=== PATIENT | male | born 1955 | race Caucasian/White ===

== ENCOUNTER 2016-04-18 01:14 | Day surgery (SDC) | payer BC ==
[2016-04-18] VITALS (11 sets, daily range): BP systolic 93–115; BP diastolic 52–69
[~2016-04-18] VITALS: Ht 167.6 cm; Wt 84.1 kg
[2016-04-18] MEDS ORDERED: HYDROmorphone HCL 1 MG/ML SYRINGE (J1170) As Ordered ONE (01:54)
[2016-04-18] MEDS ORDERED: TYLE500T78 PO (02:10)
[2016-04-18] MEDS ORDERED: ATEN25TA PO (02:10)
[2016-04-18] MEDS ORDERED: VITA-130 PO (02:10)
[2016-04-18] MEDS ORDERED: DULO30CA PO (02:10)
[2016-04-18] MEDS ORDERED: LISI20TA PO (02:10)
[2016-04-18] MEDS ORDERED: ASPI81TA85 PO (02:10)
[2016-04-18] MEDS ORDERED: CYCL10TA PO (02:10)
[2016-04-18] MEDS ORDERED: GEMF600T PO (02:10)
[2016-04-18] MEDS ORDERED: BUPIVACAINE/EPIN 0.25% 30 ML VIAL As Ordered ONE (02:26)
[2016-04-18] MEDS ORDERED: BUPIVACAINE HCL 0.25% 30 ML VIAL As Ordered ONE (02:27)
[2016-04-18] MEDS ORDERED: PROPOFOL 200 MG/20 ML VIAL As Ordered ONE (02:46)
[2016-04-18] MEDS ORDERED: ROCURONIUM BROMIDE 50 MG/5 ML VIAL As Ordered ONE (02:46)
[2016-04-18] MEDS ORDERED: LIDOCAINE 2% INJ 100 MG/5 ML SDV (FOR ANES.) As Ordered ONE (02:46)
[2016-04-18] MEDS ORDERED: MIDAZOLAM INJ 2 MG/2 ML VIAL (J2250) As Ordered ONE (02:46)
[2016-04-18] MEDS ORDERED: fentaNYL 250 MCG/5 ML INJECTION (J3010) As Ordered ONE (02:46)
--- NOTE | 2016-04-18 02:57 | EDDOCDS ---
Physician Documentation [facility] Name: Vernon Glover Age: 60 yrs Sex: Male : 1955 Arrival Date: 04/18/2016 Time: 01:14 Bed 10 Private MD: Disposition: 04/18/16 01:43 Hospitalization ordered by Low Martinez for Inpatient Admission. Preliminary diagnosis is Acute appendicitis. - Bed requested for Admit. - Status is Inpatient Admission. ml3 - Condition is Stable. - Problem is new. - Symptoms are unchanged. Historical: - Allergies: OTC cold medicine; - Home Meds: 1. aspirin 81 mg Oral tab 1 tab once daily 2. atenolol 25 mg Oral tab 1 tab once daily 3. cyclobenzaprine 10 mg Oral tab 1 tab 3 times per day as needed 4. gemfibrozil 600 mg Oral tab 1 tab daily 5. lisinopril-hydrochlorothiazide 20-12.5 mg oral tab 1 tab once daily 6. Vitamin C 500 mg Oral tab daily - PMHx: Hypertension; Hypercholesterolemia; Chronic Back pain; Degenerative disc disease; lumbar strain; - PSHx: Hernia repair; Carpal Tunnel Repair- Right; back surgery; - Social history: Smoking status: Cigars Patient uses alcohol occasionally. No barriers to communication noted, The patient speaks fluent Slovak. - Family history: Not pertinent. - : The pt / caregiver states he / she is not on anticoagulants. Home medication list is obtained from the patient. - Exposure Risk Screening:: None identified. Vital Signs: 04/18 01:20 BP 145 / 68; Pulse 109; Resp 18; Temp 98.6(TE); Pulse Ox 95% on R/A; Weight 82.55 kg / mdr 181.99 lbs (R); Height 5 ft. 6 in. (167.64 cm) (R); Pain 9/10; 01:59 Pulse 108 MON; Pulse Ox 91% ; 02:27 BP 117 / 63 (auto/); mar 02:27 Pulse 114 MON; Pulse Ox 91% ; mar 02:36 Temp 100.6(O); mdr 01:20 Body Mass Index 29.38 (82.55 kg, 167.64 cm) mdr MDM: 01:44 Dilaudid - HYDROmorphone 0.5 mg IVP once ordered. cs11 01:44 NS 0.9% 1000 ml IV at 250 mL/hr continuous ordered. cs11 01:45 BED REQUEST+ADM ordered. EDMA 02:05 Financial registration complete. [facility] 02:41 Admission Orders was scanned into [employer] and attached to record. ml3 Administered Medications: 02:00 Drug: Dilaudid - HYDROmorphone 0.5 mg [hydromorphone 1 mg/mL injection syringe (0.5 mlc mL)] Route: IVP; Site: left antecubital; 02:00 Drug: NS 0.9% 1000 ml [sodium chloride 0.9 % intravenous solution] Route: IV; Rate: 250 mlc mL/hr; Site: left antecubital; Signatures: Dispatcher [employer] EDMA Barrington Matthews, Loading Machine Tool Setter Unit ml3 Lázaro Brian, DO cs11 Jes Flowers RN RN Dipika Bernal [facility] The chart was reviewed and I authenticate all verbal orders and agree with the evaluation and treatment provided.Corrections: (The following items were deleted from the chart) 02:46 01:26 Home Meds: meloxicam 15 mg oral tab 1 tab once daily; [facility] mar Attachments: 02:41 Admission Orders ml3 MTDD
--- NOTE | 2016-04-18 02:58 | EDDOCDS ---
Nurse's Notes [facility] Name: Vernon Glover Age: 60 yrs Sex: Male : 1955 Arrival Date: 04/18/2016 Time: 01:14 Bed 10 Private MD: Diagnosis: Acute appendicitis Presentation: 04/18 01:18 Presenting complaint: EMS states: transfer from [facility]. pt diagnosed with mlc appendicitis. c/o of right lower quad pain. Adult Sepsis Screening: The patient does not have new or worsening altered mentation. Patient's respiratory rate is less than 22. Systolic blood pressure is greater than 100. Patient has a qSOFA score of 0- Negative Sepsis Screen. Suicide/Homicide risk assessment- the patient denies having any suicidal and/or homicidal ideations and does not present with any other emotional, behavioral or mental health complaints. Status: Patient is not a social services manager or dependent. Transition of care: patient was received from [facility]. 01:18 Acuity: EBENEZER Level 3 mlc 01:18 Method Of Arrival: Ambulance mlc Triage Assessment: 01:26 General: Appears in no apparent distress, comfortable, Behavior is cooperative. Pain: mlc Location: right lower quadrant Pain currently is 8 out of 10 on a pain scale. Pt Declines HIV testing. The patient is triaged at the bedside. See Assessment in Nurses Notes section of ED record. Neurological: Level of Consciousness is awake, alert, Oriented to person, place, time. Respiratory: Airway is patent Respiratory effort is even, unlabored, Respiratory pattern is regular. GI: Abdomen is non- distended Denies nausea. Derm: Skin is pink, warm & dry. Historical: - Allergies: OTC cold medicine; - Home Meds: 1. aspirin 81 mg Oral tab 1 tab once daily 2. atenolol 25 mg Oral tab 1 tab once daily 3. cyclobenzaprine 10 mg Oral tab 1 tab 3 times per day as needed 4. gemfibrozil 600 mg Oral tab 1 tab daily 5. lisinopril-hydrochlorothiazide 20-12.5 mg oral tab 1 tab once daily 6. Vitamin C 500 mg Oral tab daily - PMHx: Hypertension; Hypercholesterolemia; Chronic Back pain; Degenerative disc disease; lumbar strain; - PSHx: Hernia repair; Carpal Tunnel Repair- Right; back surgery; - Social history: Smoking status: Cigars Patient uses alcohol occasionally. No barriers to communication noted, The patient speaks fluent Ugandan. - Family history: Not pertinent. - : The pt / caregiver states he / she is not on anticoagulants. Home medication list is obtained from the patient. - Exposure Risk Screening:: None identified. Screenin:27 Screening information is obtained from the patient. Fall risk: No risks identified. [facility] Assistance ADL's: Requires assistance with housework, assistance is provided by family members. Abuse/DV Screen: The patient / caregiver reports he/she is: not in a situation that causes fear, pain or injury. Nutritional screening: No deficits noted. Advance Directives: Currently, there is a health care proxy, Aidee Glover, . There is an active Power of Trimmer Buffing Wheel, Aidee Glover, . home support is adequate. Assessment: 02:00 General: Appears in no apparent distress, comfortable, Behavior is cooperative. Pain: [facility] Location: right lower quadrant Pain currently is 8 out of 10 on a pain scale. Cardiovascular: Heart tones S1 S2 present. Respiratory: Airway is patent Respiratory effort is even, unlabored, Respiratory pattern is regular, Breath sounds are clear bilaterally. GI: Abdomen is non- distended Bowel sounds present X 4 quads. Abd is tender to palpation in right lower quadrant. Derm: Skin is pink, warm & dry. 02:38 General: no change in general condition, Dr Martinez has evaluated patient.. mar Vital Signs: 01:20 BP 145 / 68; Pulse 109; Resp 18; Temp 98.6(TE); Pulse Ox 95% on R/A; Weight 82.55 kg mdr (R); Height 5 ft. 6 in. (167.64 cm) (R); Pain 9/10; 01:59 Pulse 108 MON; Pulse Ox 91% ; [facility] 02:27 BP 117 / 63 (auto/); mar 02:27 Pulse 114 MON; Pulse Ox 91% ; mar 02:36 Temp 100.6(O); mdr 01:20 Body Mass Index 29.38 (82.55 kg, 167.64 cm) [facility] Vitals: 01:26 Log In Time N/A - ambulance arrival. [facility] ED Course: 01:15 Patient visited by Barrington Matthews, Shrimp Trawler. 3 01:15 Patient moved to Waiting 3 01:16 Jes Flowers RN is Primary Nurse. ml3 01:16 Patient moved to 10 ml3 01:20 Triage Initiated mlc 01:21 Patient visited by Deuce Velez PCA. mdr 01:33 Lázaro Brian DO is Attending Physician. cs11 01:33 Patient visited by Lázaro Brian DO. cs11 01:43 Juan Low is Hospitalizing Provider. cs11 02:01 The patient / caregiver is instructed regarding the plan of care and ED course. mlc 02:01 IV is patent, is intact, is free of redness or swelling. solution is infusing as mlc ordered. 20g left AC, started at [facility]. 02:02 Patient visited by Jes Flowers RN. mlc 02:36 Patient visited by Deuce Velez PCA. mdr 02:41 Admission Orders was scanned into [employer] and attached to record. ml3 02:42 No procedures done that require assistance. kyle Administered Medications: 02:00 Drug: Dilaudid - HYDROmorphone 0.5 mg [hydromorphone 1 mg/mL injection syringe (0.5 mlc mL)] Route: IVP; Site: left antecubital; 02:00 Drug: NS 0.9% 1000 ml [sodium chloride 0.9 % intravenous solution] Route: IV; Rate: 250 mlc mL/hr; Site: left antecubital; Order Results: There are currently no results for this order. Outcome: 01:43 Decision to Hospitalize by Provider. cs11 02:39 Discharge Assessment: patient administered narcotics - no. The following High Risk kyle Discharge criteria are identified: None. Admitted to OR accompanied by nurse, via stretcher, with chart. Condition: unchanged. No special radiology studies were completed. Property with . 02:56 Patient left the ED. ml3 Signatures: Dolores Bach RN RN jan Lopresti, Mary-Elizabeth, Shrimp Trawler Unit ml3 Lázaro Brian DO DO cs11 Jes Flowers RN RN [facility] Deuce Velez PCA BULK TRUCK DRIVER mdr Corrections: (The following items were deleted from the chart) 02:02 02:01 IV is patent, is intact, is free of redness or swelling. solution is infusing as mlc ordered. mlc 02:46 01:26 Home Meds: meloxicam 15 mg oral tab 1 tab once daily; mlc kyle MTDD
[2016-04-18] MEDS ORDERED: UNASYN 1.5 GM VIAL As Ordered ONE (03:04)
[2016-04-18] MEDS ORDERED: SUCCINYLCHOLINE 100 MG/5 ML SYRINGE (J0330) As Ordered ONE (03:21)
[2016-04-18] MEDS ORDERED: ONDANSETRON 4MG/2ML VIAL (J2405) As Ordered ONE (04:05)
[2016-04-18] MEDS ORDERED: KETOROLAC 60 MG/2 ML VIAL (J1885) As Ordered ONE (04:05)
[2016-04-18] MEDS ORDERED: NEOSTIGMINE 1MG/ML 5 ML SYRINGE (J2710) As Ordered ONE (04:05)
[2016-04-18] MEDS ORDERED: GLYCOPYRROLATE INJ 0.2 MG/ML 2 ML VIAL As Ordered ONE (04:05)
[2016-04-18] MEDS: PIPERACILLIN/TAZOBACTAM SOD 3.375 GM in D5W MINI-BAG PLUS 50 ML IV SCH ×4 (05:10→22:53)
[2016-04-18] MEDS ORDERED: ZOSYN 3.375 GM VIAL (J2543) As Ordered ONE (05:10)
[2016-04-18] MEDS ORDERED: LR 1,000 ML IV SCH (05:30)
[2016-04-18] MEDS ORDERED: ACETAMINOPHEN TAB 650MG DOSE (2X325MG) PO PRN (05:30)
[2016-04-18] MEDS ORDERED: ONDANSETRON 4MG/2ML VIAL (J2405) IV PRN ×2 (05:30→05:45)
[2016-04-18] MEDS: LR 1,000 ML IV SCH ×2 (05:30→15:30)
[2016-04-18] MEDS ORDERED: fentaNYL 100 MCG/2 ML INJECTION (J3010) IV PRN (05:30)
[2016-04-18] MEDS ORDERED: ONDANSETRON 4 MG TAB (S0181) PO PRN (05:45)
[2016-04-18] MEDS: MORPHINE 2 MG/ML 1ML SYRINGE IV PRN ×2 (09:02→22:53)
[2016-04-18] MEDS: ATENOLOL 25 MG TAB PO SCH (10:51)
[2016-04-18] MEDS: NORCO, ANEXSIA 5/325MG TABLET (HYDROcodone/ACETAMINOPHEN) PO PRN ×3 (12:19→21:34)
[2016-04-18 16:06] LABS: BASO # 0.1 K/mm3 (0.0-0.2); BASO % 0.5 % (0.0-1.0); EOS % 0.3 % (0.0-3.0); LARGE UNSTAINED CELL # 0.2 K/mm3 (0.0-0.4); LARGE UNSTAINED CELL % 1.1 % (0.0-4.0); LYMPH # 1.5 K/mm3 (1.5-4.5); LYMPH % 9.8 % (24.0-44.0); MEAN CORPUSCULAR HEMOGLOBIN 31.6 pg (27.0-33.0); MEAN CORPUSCULAR HGB CONC 34.3 g/dl (32.0-36.5); MEAN CORPUSCULAR VOLUME 92.2 fl (80.0-96.0); MONO # 0.8 K/mm3 (0.0-0.8); MONO % 5.5 % (0.0-5.0); NEUTROPHILS # 11.4 K/mm3 (1.8-7.7); NEUTROPHILS % 82.8 % (36.0-66.0); PLATELET COUNT, AUTOMATED 191 k/mm3 (150-450); RED CELL DISTRIBUTION WIDTH 13.9 % (11.5-14.5); WHITE BLOOD COUNT 13.8 K/mm3 (4.0-10.0)
[2016-04-19] VITALS: BP 103/61
[2016-04-19] MEDS: NORCO, ANEXSIA 5/325MG TABLET (HYDROcodone/ACETAMINOPHEN) PO PRN ×6 (01:30→11:07)
[2016-04-19 04:00] VITALS: BP 98/61
[2016-04-19] MEDS: MORPHINE 2 MG/ML 1ML SYRINGE IV PRN (04:06)
[2016-04-19] MEDS: PIPERACILLIN/TAZOBACTAM SOD 3.375 GM in D5W MINI-BAG PLUS 50 ML IV SCH ×2 (05:11→11:00)
[2016-04-19 07:34] LABS: BASO % 0.2 % (0.0-1.0); EOS # 0.1 K/mm3 (0.0-0.50); LARGE UNSTAINED CELL # 0.1 K/mm3 (0.0-0.4); LARGE UNSTAINED CELL % 0.9 % (0.0-4.0); LYMPH # 1.1 K/mm3 (1.5-4.5); LYMPH % 9.7 % (24.0-44.0); MEAN CORPUSCULAR HEMOGLOBIN 31.8 pg (27.0-33.0); MEAN CORPUSCULAR HGB CONC 34.9 g/dl (32.0-36.5); MONO # 0.5 K/mm3 (0.0-0.8); MONO % 4.4 % (0.0-5.0); NEUTROPHILS # 9.7 K/mm3 (1.8-7.7); NEUTROPHILS % 83.8 % (36.0-66.0); PLATELET COUNT, AUTOMATED 223 k/mm3 (150-450); RED CELL DISTRIBUTION WIDTH 12.5 % (11.5-14.5); WHITE BLOOD COUNT 11.6 K/mm3 (4.0-10.0)
[2016-04-19 08:00] VITALS: BP 126/70
--- NOTE | 2016-04-19 08:21 | RO ---
DATE OF PROCEDURE: 04/18/2016 PREOPERATIVE DIAGNOSIS: Appendicitis. POSTOPERATIVE DIAGNOSIS: Perforated appendicitis. PROCEDURE PERFORMED: Laparoscopic appendectomy. SURGEON: Dr. Low Martinez RETAIL WAREHOUSE SUPERVISOR: ANESTHESIA: General. INDICATIONS FOR PROCEDURE: The patient is a 60-year-old man who presented to [facility] with a roughly 24-hour history of abdominal pain becoming localized to the right lower quadrant. He was found to have a white blood cell count of 20,000 with 84% neutrophils and a CT scan was interpreted as being consistent with appendicitis. The patient was transferred to [facility] for treatment and he is now for surgery. OPERATIVE PROCEDURE: The patient was placed under general endotracheal anesthesia. The patient's abdomen was prepped and draped in a sterile fashion. 0.25% Marcaine was infiltrated at each of the trocar sites. A short supraumbilical midline incision was made and deepened through the subcutaneous tissues and fascia. The peritoneum was opened bluntly. A Ott cannula was inserted and the abdomen was insufflated with carbon dioxide gas. Initial examination showed some inflammatory changes low in the right lower quadrant. There was some exudate noted over the fibrofatty tissue adjacent to the terminal ileum. There was a small amount of turbid yellowish looking fluid low in the right lower quadrant. The patient was tilted to a Trendelenburg position and rolled somewhat to the left. A 5 mm trocar was placed low in the midline and a second 5 mm trocar was placed in the left lower quadrant. Graspers were inserted. There were some adhesions of the lateral aspect of the cecum to the lateral abdominal wall. The fibrofatty tissue seen initially was found to be a fatty tag along the antimesenteric border of the terminal ileum. As this was folded medially, the inflamed appendix was identified just lateral to this. It was difficult to expose this area as the terminal ileum was also adherent along the lateral border of the pelvis and the cecum and terminal ileum covered much of the appendix. Some of the attachments laterally, particularly of the cecum, were divided using the hook cautery. The fatty tag along the terminal ileum was dissected off using the hook cautery. The appendix was identified and was clearly quite inflamed. There appeared to be a small perforation or incipient perforation in the midportion of the appendix. As the appendix was mobilized, this area opened and there was drainage of purulent and feculent fluid into the area around the appendix. This was all rapidly irrigated and suctioned. The appendix was grasped and elevated. Some adhesions attaching this to the retroperitoneum were divided with the hook cautery. The mesoappendix was largely divided using the hook cautery. The base of the appendix was exposed and the base was then stapled with the linear cutter stapler with a blue load. The appendix was placed in an Endopouch. The right lower quadrant was irrigated. Inspection identified a small oozing point just inferior to the cecum and this was controlled with the cautery. Inspection revealed no further bleeding. The patient was tilted to a reverse Trendelenburg position and the right paracolic gutter and the right lower quadrant were all irrigated to remove any contamination. The irrigation was then suctioned from the abdomen as thoroughly as possible. A total of 3 liters of irrigation was used for the procedure. Once the irrigation was complete, the right lower quadrant was inspected a final time and there was no sign of bleeding. The patient was placed in a flat position and the abdomen was deflated and the trocars were all removed. The appendix was recovered through the Ott site. The peritoneum at the Ott site was closed with two simple sutures of #2-0 Vicryl. The fascia was closed with interrupted simple sutures of #2-0 Vicryl. The skin incisions were all closed with buried #5-0 Vicryl and Steri-Strips. Light dressings were applied. The patient tolerated the procedure well without apparent complication. He was awakened in the operating room, extubated and moved to the recovery room in stable condition. DEN
[2016-04-19 08:51] VITALS: BP 126/70
[2016-04-19] MEDS: ATENOLOL 25 MG TAB PO SCH (08:51)
[2016-04-19] MEDS ORDERED: BACT800T5 PO (11:07)
[2016-04-19] MEDS ORDERED: METR500T10 PO (11:07)
[2016-04-19] MEDS ORDERED: NORCOTAB PO (11:07)
--- NOTE | 2016-04-20 03:58 | EDDOCDS ---
Nurse's Notes [facility] Name: Vernon Glover Age: 60 yrs Sex: Male : 1955 Arrival Date: 04/18/2016 Time: 01:14 Bed 10 Private MD: Diagnosis: Acute appendicitis Presentation: 04/18 01:18 Presenting complaint: EMS states: transfer from [facility]. pt diagnosed with mlc appendicitis. c/o of right lower quad pain. Adult Sepsis Screening: The patient does not have new or worsening altered mentation. Patient's respiratory rate is less than 22. Systolic blood pressure is greater than 100. Patient has a qSOFA score of 0- Negative Sepsis Screen. Suicide/Homicide risk assessment- the patient denies having any suicidal and/or homicidal ideations and does not present with any other emotional, behavioral or mental health complaints. Status: Patient is not a ancillary services manager or dependent. Transition of care: patient was received from [facility]. 01:18 Acuity: EBENEZER Level 3 mlc 01:18 Method Of Arrival: Ambulance mlc Triage Assessment: 01:26 General: Appears in no apparent distress, comfortable, Behavior is cooperative. Pain: mlc Location: right lower quadrant Pain currently is 8 out of 10 on a pain scale. Pt Declines HIV testing. The patient is triaged at the bedside. See Assessment in Nurses Notes section of ED record. Neurological: Level of Consciousness is awake, alert, Oriented to person, place, time. Respiratory: Airway is patent Respiratory effort is even, unlabored, Respiratory pattern is regular. GI: Abdomen is non- distended Denies nausea. Derm: Skin is pink, warm & dry. Historical: - Allergies: OTC cold medicine; - Home Meds: 1. aspirin 81 mg Oral tab 1 tab once daily 2. atenolol 25 mg Oral tab 1 tab once daily 3. cyclobenzaprine 10 mg Oral tab 1 tab 3 times per day as needed 4. gemfibrozil 600 mg Oral tab 1 tab daily 5. lisinopril-hydrochlorothiazide 20-12.5 mg oral tab 1 tab once daily 6. Vitamin C 500 mg Oral tab daily - PMHx: Hypertension; Hypercholesterolemia; Chronic Back pain; Degenerative disc disease; lumbar strain; - PSHx: Hernia repair; Carpal Tunnel Repair- Right; back surgery; - Social history: Smoking status: Cigars Patient uses alcohol occasionally. No barriers to communication noted, The patient speaks fluent Filipino. - Family history: Not pertinent. - : The pt / caregiver states he / she is not on anticoagulants. Home medication list is obtained from the patient. - Exposure Risk Screening:: None identified. Screenin:27 Screening information is obtained from the patient. Fall risk: No risks identified. [facility] Assistance ADL's: Requires assistance with housework, assistance is provided by family members. Abuse/DV Screen: The patient / caregiver reports he/she is: not in a situation that causes fear, pain or injury. Nutritional screening: No deficits noted. Advance Directives: Currently, there is a health care proxy, Aidee Glover, . There is an active Power of Window Cutter, Aidee Glover, . home support is adequate. Assessment: 02:00 General: Appears in no apparent distress, comfortable, Behavior is cooperative. Pain: [facility] Location: right lower quadrant Pain currently is 8 out of 10 on a pain scale. Cardiovascular: Heart tones S1 S2 present. Respiratory: Airway is patent Respiratory effort is even, unlabored, Respiratory pattern is regular, Breath sounds are clear bilaterally. GI: Abdomen is non- distended Bowel sounds present X 4 quads. Abd is tender to palpation in right lower quadrant. Derm: Skin is pink, warm & dry. 02:38 General: no change in general condition, Dr Martinez has evaluated patient.. mar Vital Signs: 01:20 BP 145 / 68; Pulse 109; Resp 18; Temp 98.6(TE); Pulse Ox 95% on R/A; Weight 82.55 kg mdr (R); Height 5 ft. 6 in. (167.64 cm) (R); Pain 9/10; 01:59 Pulse 108 MON; Pulse Ox 91% ; [facility] 02:27 BP 117 / 63 (auto/); mar 02:27 Pulse 114 MON; Pulse Ox 91% ; mar 02:36 Temp 100.6(O); mdr 01:20 Body Mass Index 29.38 (82.55 kg, 167.64 cm) [facility] Vitals: 01:26 Log In Time N/A - ambulance arrival. [facility] ED Course: 01:15 Patient visited by Barrington Matthews, Knot Bumper. 3 01:15 Patient moved to Waiting 3 01:16 Jes Flowers RN is Primary Nurse. ml3 01:16 Patient moved to 10 ml3 01:20 Triage Initiated mlc 01:21 Patient visited by Deuce Velez, SKY. mdr 01:33 Lázaro Brian DO is Attending Physician. cs11 01:33 Patient visited by Lázaro Brian DO. cs11 01:43 Low Martinez is Hospitalizing Provider. cs11 02:01 The patient / caregiver is instructed regarding the plan of care and ED course. mlc 02:01 IV is patent, is intact, is free of redness or swelling. solution is infusing as mlc ordered. 20g left AC, started at [facility]. 02:02 Patient visited by Jes Flowers RN. mlc 02:36 Patient visited by Deuce Velez PCA. mdr 02:41 Admission Orders was scanned into [employer] and attached to record. ml3 02:42 No procedures done that require assistance. kyle 03:33 Patient name changed from Vernon\S\\S\Briere\S\ to Vernon\S\Suleiman\S\Briere. EDMS 03:33 [facility] Payment Agreement was scanned into [employer] and attached to record. [facility] 14:10 T-Sheet-- Draft Copy was scanned into [employer] and attached to record. gb Administered Medications: 02:00 Drug: Dilaudid - HYDROmorphone 0.5 mg [hydromorphone 1 mg/mL injection syringe (0.5 mlc mL)] Route: IVP; Site: left antecubital; 02:00 Drug: NS 0.9% 1000 ml [sodium chloride 0.9 % intravenous solution] Route: IV; Rate: 250 mlc mL/hr; Site: left antecubital; Order Results: There are currently no results for this order. Outcome: 01:43 Decision to Hospitalize by Provider. cs11 02:39 Discharge Assessment: patient administered narcotics - no. The following High Risk kyle Discharge criteria are identified: None. Admitted to OR accompanied by nurse, via stretcher, with chart. Condition: unchanged. No special radiology studies were completed. Property with . 02:56 Patient left the ED. ml3 Signatures: Dispatcher [employer] EDMS Dolores Bach RN RN jan Barnhardt, Gloria, Reg Reg Barrington Santana, Knot Bumper Unit ml3 Lázaro Brian DO DO cs11 Jes Flowers,RN RN Dipika Bernal Mitchell, PCA MUTUAL FUND SALES AGENT mdr Corrections: (The following items were deleted from the chart) 02:02 02:01 IV is patent, is intact, is free of redness or swelling. solution is infusing as mlc ordered. [facility] 02:46 01:26 Home Meds: meloxicam 15 mg oral tab 1 tab once daily; [facility] kyle Chart Complete MTDD
--- NOTE | 2016-04-20 03:58 | EDDOCDS ---
Physician Documentation [facility] Name: Vernon Glover Age: 60 yrs Sex: Male : 1955 Arrival Date: 04/18/2016 Time: 01:14 Bed 10 Private MD: Disposition: 04/18/16 01:43 Hospitalization ordered by Low Martinez for Inpatient Admission. Preliminary diagnosis is Acute appendicitis. - Bed requested for Admit. - Status is Inpatient Admission. ml3 - Condition is Stable. - Problem is new. - Symptoms are unchanged. Historical: - Allergies: OTC cold medicine; - Home Meds: 1. aspirin 81 mg Oral tab 1 tab once daily 2. atenolol 25 mg Oral tab 1 tab once daily 3. cyclobenzaprine 10 mg Oral tab 1 tab 3 times per day as needed 4. gemfibrozil 600 mg Oral tab 1 tab daily 5. lisinopril-hydrochlorothiazide 20-12.5 mg oral tab 1 tab once daily 6. Vitamin C 500 mg Oral tab daily - PMHx: Hypertension; Hypercholesterolemia; Chronic Back pain; Degenerative disc disease; lumbar strain; - PSHx: Hernia repair; Carpal Tunnel Repair- Right; back surgery; - Social history: Smoking status: Cigars Patient uses alcohol occasionally. No barriers to communication noted, The patient speaks fluent Occitan. - Family history: Not pertinent. - : The pt / caregiver states he / she is not on anticoagulants. Home medication list is obtained from the patient. - Exposure Risk Screening:: None identified. Vital Signs: 04/18 01:20 BP 145 / 68; Pulse 109; Resp 18; Temp 98.6(TE); Pulse Ox 95% on R/A; Weight 82.55 kg / mdr 181.99 lbs (R); Height 5 ft. 6 in. (167.64 cm) (R); Pain 9/10; 01:59 Pulse 108 MON; Pulse Ox 91% ; 02:27 BP 117 / 63 (auto/); mar 02:27 Pulse 114 MON; Pulse Ox 91% ; mar 02:36 Temp 100.6(O); mdr 01:20 Body Mass Index 29.38 (82.55 kg, 167.64 cm) mdr MDM: 01:44 Dilaudid - HYDROmorphone 0.5 mg IVP once ordered. cs11 01:44 NS 0.9% 1000 ml IV at 250 mL/hr continuous ordered. cs11 01:45 BED REQUEST+ADM ordered. EDMS 02:05 Financial registration complete. [facility] 02:41 Admission Orders was scanned into [employer] and attached to record. [facility] 03:33 COUNT INCLUDES THE [facility] Payment Agreement was scanned into [employer] and attached to record. [facility] 14:10 T-Sheet-- Draft Copy was scanned into [employer] and attached to record. gb Administered Medications: 02:00 Drug: Dilaudid - HYDROmorphone 0.5 mg [hydromorphone 1 mg/mL injection syringe (0.5 mlc mL)] Route: IVP; Site: left antecubital; 02:00 Drug: NS 0.9% 1000 ml [sodium chloride 0.9 % intravenous solution] Route: IV; Rate: 250 mlc mL/hr; Site: left antecubital; Signatures: Dispatcher [employer] EDMS Denisa Prieto, Chidi Reg Barrington Santana, Cardiac Sonographer Unit ml3 Lázaro Brian, DO cs Jes Flowers,RN RN Dipika Bernal [facility] The chart was reviewed and I authenticate all verbal orders and agree with the evaluation and treatment provided.Corrections: (The following items were deleted from the chart) 02:46 01:26 Home Meds: meloxicam 15 mg oral tab 1 tab once daily; [facility] [place] Attachments: 02:41 Admission Orders [facility] 03:33 COUNT INCLUDES THE [facility] Payment Agreement [facility] 14:10 T-Sheet-- Draft Copy gb Chart Complete MTDD
--- NOTE | 2016-04-20 03:58 | EDDOCDS ---
Physician Documentation [facility] Name: Vernon Glover Age: 60 yrs Sex: Male : 1955 Arrival Date: 04/18/2016 Time: 01:14 Bed 10 Private MD: Disposition: 04/18/16 01:43 Hospitalization ordered by Low Martinez for Inpatient Admission. Preliminary diagnosis is Acute appendicitis. - Bed requested for Admit. - Status is Inpatient Admission. ml3 - Condition is Stable. - Problem is new. - Symptoms are unchanged. Historical: - Allergies: OTC cold medicine; - Home Meds: 1. aspirin 81 mg Oral tab 1 tab once daily 2. atenolol 25 mg Oral tab 1 tab once daily 3. cyclobenzaprine 10 mg Oral tab 1 tab 3 times per day as needed 4. gemfibrozil 600 mg Oral tab 1 tab daily 5. lisinopril-hydrochlorothiazide 20-12.5 mg oral tab 1 tab once daily 6. Vitamin C 500 mg Oral tab daily - PMHx: Hypertension; Hypercholesterolemia; Chronic Back pain; Degenerative disc disease; lumbar strain; - PSHx: Hernia repair; Carpal Tunnel Repair- Right; back surgery; - Social history: Smoking status: Cigars Patient uses alcohol occasionally. No barriers to communication noted, The patient speaks fluent Kiswahili. - Family history: Not pertinent. - : The pt / caregiver states he / she is not on anticoagulants. Home medication list is obtained from the patient. - Exposure Risk Screening:: None identified. Vital Signs: 04/18 01:20 BP 145 / 68; Pulse 109; Resp 18; Temp 98.6(TE); Pulse Ox 95% on R/A; Weight 82.55 kg / mdr 181.99 lbs (R); Height 5 ft. 6 in. (167.64 cm) (R); Pain 9/10; 01:59 Pulse 108 MON; Pulse Ox 91% ; 02:27 BP 117 / 63 (auto/); mar 02:27 Pulse 114 MON; Pulse Ox 91% ; mar 02:36 Temp 100.6(O); mdr 01:20 Body Mass Index 29.38 (82.55 kg, 167.64 cm) mdr MDM: 01:44 Dilaudid - HYDROmorphone 0.5 mg IVP once ordered. cs11 01:44 NS 0.9% 1000 ml IV at 250 mL/hr continuous ordered. cs11 01:45 BED REQUEST+ADM ordered. EDMS 02:05 Financial registration complete. [facility] 02:41 Admission Orders was scanned into [employer] and attached to record. [facility] 03:33 [facility] Payment Agreement was scanned into [employer] and attached to record. [facility] 14:10 T-Sheet-- Draft Copy was scanned into [employer] and attached to record. gb Administered Medications: 02:00 Drug: Dilaudid - HYDROmorphone 0.5 mg [hydromorphone 1 mg/mL injection syringe (0.5 mlc mL)] Route: IVP; Site: left antecubital; 02:00 Drug: NS 0.9% 1000 ml [sodium chloride 0.9 % intravenous solution] Route: IV; Rate: 250 mlc mL/hr; Site: left antecubital; Signatures: Dispatcher [employer] EDMS Denisa Prieto, Chidi Reg Barrington Santana, Finance Business Partner Unit ml3 Lázaro Brian, DO cs Jes Flowers,RN RN Dipika Bernal [facility] The chart was reviewed and I authenticate all verbal orders and agree with the evaluation and treatment provided.Corrections: (The following items were deleted from the chart) 02:46 01:26 Home Meds: meloxicam 15 mg oral tab 1 tab once daily; [facility] [place] [facility] Attachments: 02:41 Admission Orders [facility] 03:33 [facility] Payment Agreement [facility] 14:10 T-Sheet-- Draft Copy gb Chart Complete MTDD
== END 2016-04-19 13:20 | disposition home or self-care (01) ==
LOC: M ED 01:14 → M OROP 02:03 → M PED 05:41 → M OROP 04-19 13:20
PROVIDERS: ATTEND Surgery
DX: K35.2 Acute appendicitis with generalized peritonitis (principal); I10 Essential (primary) hypertension; E11.9 Type 2 diabetes mellitus without complications; E78.5 Hyperlipidemia, unspecified; M54.9 Dorsalgia, unspecified; Z79.899 Other long term (current) drug therapy; Z79.82 Long term (current) use of aspirin; Z88.8 Allergy status to other drugs, medicaments and biological substances; F17.210 Nicotine dependence, cigarettes, uncomplicated
CPT/HCPCS: 36415; 44970; 85025; 88304; 96374; 96375; 96376; 99285; J0330; J1170; J1885; J2250; J2405; J2543; J2710; J3010

== ENCOUNTER → 2016-07-19 | Outpatient (REF) | payer BC ==
[~2016-07-19] MED LIST: ASPI81TA85 PO; ATEN25TA PO; BACT800T5 PO; CYCL10TA PO; DULO30CA PO; GEMF600T PO; LISI20TA PO; METR500T10 PO; NORCOTAB PO; TYLE500T78 PO; VITA-130 PO
[2016-07-19 13:05] LABS: ALBUMIN 4.6 GM/DL (3.2-5.2); ALBUMIN/GLOBULIN RATIO 1.39 (1.00-1.93); ALKALINE PHOSPHATASE 79 U/L (45-117); ALT/SGPT 30 U/L (12-78); ANION GAP 8 MEQ/L (8-16); AST/SGOT 18 U/L (15-37); BILIRUBIN,TOTAL 0.4 MG/DL (0.2-1.0); BLOOD UREA NITROGEN 10 MG/DL (7-18); CALCIUM LEVEL 9.7 MG/DL (8.5-10.1); CARBON DIOXIDE LEVEL 31 MEQ/L (21-32); CHLORIDE LEVEL 98 MEQ/L (98-107); CREATININE FOR GFR 0.59 MG/DL (0.70-1.30); GLOMERULAR FILTRATION RATE > 60.0 (>56); GLUCOSE, FASTING 117 MG/DL (70-105); POTASSIUM SERUM 4.7 MEQ/L (3.5-5.1); SODIUM LEVEL 137 MEQ/L (136-145); TOTAL PROTEIN 7.9 GM/DL (6.4-8.2)
== END ==
LOC: M SFHCCLAY 08:30
PROVIDERS: ATTEND Family Medicine
DX: I10 Essential (primary) hypertension (principal); R73.01 Impaired fasting glucose

== ENCOUNTER → 2016-12-02 | Outpatient (REF) | payer BC ==
[~2016-12-02] MED LIST changes: +METR1TAB66 PO; -METR500T10 PO; -VITA-130 PO; +VITA500T PO
[2016-12-02 12:29] LABS: ALBUMIN 4.1 GM/DL (3.2-5.2); ALBUMIN/GLOBULIN RATIO 1.37 (1.00-1.93); ALKALINE PHOSPHATASE 72 U/L (45-117); ALT/SGPT 28 U/L (12-78); ANION GAP 9 MEQ/L (8-16); AST/SGOT 13 U/L (15-37); BILIRUBIN,TOTAL 0.4 MG/DL (0.2-1.0); BLOOD UREA NITROGEN 14 MG/DL (7-18); CALCIUM LEVEL 9.2 MG/DL (8.8-10.2); CARBON DIOXIDE LEVEL 28 MEQ/L (21-32); CHLORIDE LEVEL 100 MEQ/L (98-107); CHOLESTEROL LEVEL 177 MG/DL (<200); CREATININE FOR GFR 0.62 MG/DL (0.70-1.30); GLOMERULAR FILTRATION RATE > 60.0 (>49); GLUCOSE, FASTING 186 MG/DL (80-110); POTASSIUM SERUM 4.3 MEQ/L (3.5-5.1); SODIUM LEVEL 137 MEQ/L (136-145); TOTAL PROTEIN 7.1 GM/DL (6.4-8.2); TRIGLYCERIDES LEVEL 220 MG/DL (<150)
== END ==
LOC: M SFHCCLAY 07:43
PROVIDERS: ATTEND Family Medicine
DX: E78.5 Hyperlipidemia, unspecified (principal); R73.01 Impaired fasting glucose

== ENCOUNTER → 2017-02-28 | Outpatient (REF) | payer BC ==
[2017-02-28 18:22] LABS: ANION GAP 6 MEQ/L (8-16); BLOOD UREA NITROGEN 14 MG/DL (7-18); CALCIUM LEVEL 9.7 MG/DL (8.8-10.2); CARBON DIOXIDE LEVEL 30 MEQ/L (21-32); CHLORIDE LEVEL 99 MEQ/L (98-107); CREATININE FOR GFR 0.64 MG/DL (0.70-1.30); GLOMERULAR FILTRATION RATE > 60.0 (>49); GLUCOSE, FASTING 117 MG/DL (80-110); POTASSIUM SERUM 4.8 MEQ/L (3.5-5.1); SODIUM LEVEL 135 MEQ/L (136-145)
== END ==
LOC: M SFHCCLAY 07:55
PROVIDERS: ATTEND Family Medicine
DX: R73.01 Impaired fasting glucose (principal)

== ENCOUNTER → 2017-09-28 | Outpatient (REF) | payer OTHER ==
[2017-09-28 11:59] LABS: ALBUMIN 4.2 GM/DL (3.2-5.2); ALBUMIN/GLOBULIN RATIO 1.35 (1.00-1.93); ALKALINE PHOSPHATASE 69 U/L (45-117); ALT/SGPT 35 U/L (12-78); ANION GAP 9 MEQ/L (8-16); AST/SGOT 30 U/L (7-37); BILIRUBIN,TOTAL 0.5 MG/DL (0.2-1.0); BLOOD UREA NITROGEN 11 MG/DL (7-18); CARBON DIOXIDE LEVEL 28 MEQ/L (21-32); CHLORIDE LEVEL 100 MEQ/L (98-107); CREATININE FOR GFR 0.66 MG/DL (0.70-1.30); GLOMERULAR FILTRATION RATE > 60.0 (>49); GLUCOSE, FASTING 135 MG/DL (70-100); POTASSIUM SERUM 4.4 MEQ/L (3.5-5.1); SODIUM LEVEL 137 MEQ/L (136-145); TOTAL PROTEIN 7.3 GM/DL (6.4-8.2)
[2017-09-28 13:03] LABS: ESTIMATED AVERAGE GLUCOSE 137 MG/DL (60-110); HEMOGLOBIN A1c 6.4 %
== END ==
LOC: M SFHCCLAY 09:38
DX: R73.01 Impaired fasting glucose (principal)
CPT/HCPCS: 80053

== ENCOUNTER → 2018-04-27 | Outpatient (REF) | payer BC ==
[~2018-04-27] MED LIST changes: -GEMF600T PO; +GEMF600T5 PO; +METR-201 PO; -METR1TAB66 PO
[2018-04-27 12:34] LABS: ALBUMIN 4.6 GM/DL (3.2-5.2); ALT/SGPT 24 U/L (12-78); BILIRUBIN,TOTAL 0.6 MG/DL (0.2-1.0); BLOOD UREA NITROGEN 15 MG/DL (7-18); CALCIUM LEVEL 9.1 MG/DL (8.8-10.2); CARBON DIOXIDE LEVEL 29 MEQ/L (21-32); CHLORIDE LEVEL 97 MEQ/L (98-107); CHOLESTEROL LEVEL 183 MG/DL (<200); CHOLESTEROL RISK RATIO 5.903 (<5); CREATININE FOR GFR 0.75 MG/DL (0.70-1.30); GLOMERULAR FILTRATION RATE > 60.0 (>49); GLUCOSE, FASTING 188 MG/DL (70-100); HDL CHOLESTEROL 31 MG/DL (>40); LDL CHOLESTEROL 75 MG/DL (<100); NON-HDL-C 152 MG/DL; POTASSIUM SERUM 4.4 MEQ/L (3.5-5.1); SODIUM LEVEL 132 MEQ/L (136-145); TOTAL PROTEIN 7.6 GM/DL (6.4-8.2); TRIGLYCERIDES LEVEL 386 MG/DL (<150)
[2018-04-27 12:58] LABS: HEMOGLOBIN A1c 7.4 %
== END ==
LOC: M SFHCCLAY 09:07
PROVIDERS: ATTEND Family Medicine
DX: I10 Essential (primary) hypertension (principal); E78.5 Hyperlipidemia, unspecified; R73.01 Impaired fasting glucose

== ENCOUNTER → 2018-08-30 | Outpatient (REF) | payer BC ==
[~2018-08-30] MED LIST changes: -DULO30CA PO; +DULO30CA9 PO; +HYDR-3715 PO; -METR-201 PO; +METR-265 PO; -NORCOTAB PO
[2018-08-30 12:35] LABS: ALBUMIN 4.3 GM/DL (3.2-5.2); ALT/SGPT 25 U/L (12-78); BILIRUBIN,TOTAL 0.5 MG/DL (0.2-1.0); BLOOD UREA NITROGEN 14 MG/DL (7-18); CALCIUM LEVEL 9.4 MG/DL (8.8-10.2); CARBON DIOXIDE LEVEL 28 MEQ/L (21-32); CHLORIDE LEVEL 99 MEQ/L (98-107); CHOLESTEROL LEVEL 172 MG/DL (<200); CHOLESTEROL RISK RATIO 4.095 (<5); CREATININE FOR GFR 0.75 MG/DL (0.70-1.30); GLOMERULAR FILTRATION RATE > 60.0 (>49); GLUCOSE, FASTING 130 MG/DL (70-100); HDL CHOLESTEROL 42 MG/DL (>40); LDL CHOLESTEROL 97 MG/DL (<100); NON-HDL-C 130 MG/DL; POTASSIUM SERUM 4.6 MEQ/L (3.5-5.1); SODIUM LEVEL 135 MEQ/L (136-145); TOTAL PROTEIN 7.6 GM/DL (6.4-8.2); TRIGLYCERIDES LEVEL 167 MG/DL (<150)
[2018-08-30 12:39] LABS: HEMOGLOBIN A1c 6.7 %
== END ==
LOC: M SFHCCLAY 07:50
PROVIDERS: ATTEND Family Medicine
DX: E11.9 Type 2 diabetes mellitus without complications (principal)

== ENCOUNTER → 2019-03-28 | Outpatient (REF) | payer MEDICARE, BC ==
[~2019-03-28] MED LIST changes: -LISI20TA PO; +LISI20TA19 PO
[2019-03-29 11:41] LABS: ALBUMIN 4.4 GM/DL (3.2-5.2); ALT/SGPT 18 U/L (12-78); BILIRUBIN,TOTAL 0.5 MG/DL (0.2-1.0); BLOOD UREA NITROGEN 14 MG/DL (7-18); CALCIUM LEVEL 9.1 MG/DL (8.8-10.2); CARBON DIOXIDE LEVEL 29 MEQ/L (21-32); CHLORIDE LEVEL 100 MEQ/L (98-107); CREATININE FOR GFR 0.71 MG/DL (0.70-1.30); GLOMERULAR FILTRATION RATE > 60.0 (>49); GLUCOSE, FASTING 106 MG/DL (70-100); POTASSIUM SERUM 4.1 MEQ/L (3.5-5.1); SODIUM LEVEL 136 MEQ/L (136-145); TOTAL PROTEIN 7.6 GM/DL (6.4-8.2)
[2019-03-29 11:50] LABS: HEMOGLOBIN A1c 7.1 %
== END ==
LOC: M SFHCCLAY 14:50
PROVIDERS: ATTEND Family Medicine
DX: E11.9 Type 2 diabetes mellitus without complications (principal)

== ENCOUNTER → 2019-07-18 | Outpatient (REF) | payer BC ==
[~2019-07-18] MED LIST changes: +CYCL-707 PO; -CYCL10TA PO; +VITA-243 PO; -VITA500T PO
[2019-07-18 16:20] LABS: ALBUMIN 4.4 GM/DL (3.2-5.2); ALT/SGPT 29 U/L (12-78); BILIRUBIN,TOTAL 0.5 MG/DL (0.2-1.0); BLOOD UREA NITROGEN 14 MG/DL (7-18); CALCIUM LEVEL 9.5 MG/DL (8.8-10.2); CARBON DIOXIDE LEVEL 29 MEQ/L (21-32); CHLORIDE LEVEL 100 MEQ/L (98-107); CHOLESTEROL LEVEL 181 MG/DL (<200); CHOLESTEROL RISK RATIO 4.022 (<5); CREATININE FOR GFR 0.71 MG/DL (0.70-1.30); GLOMERULAR FILTRATION RATE > 60.0 (>49); GLUCOSE, FASTING 125 MG/DL (70-100); HDL CHOLESTEROL 45 MG/DL (>40); LDL CHOLESTEROL 100 MG/DL (<100); NON-HDL-C 136 MG/DL; POTASSIUM SERUM 4.8 MEQ/L (3.5-5.1); SODIUM LEVEL 135 MEQ/L (136-145); TOTAL PROTEIN 7.5 GM/DL (6.4-8.2); TRIGLYCERIDES LEVEL 180 MG/DL (<150)
[2019-07-18 16:33] LABS: HEMOGLOBIN A1c 6.9 %
== END ==
LOC: M SFHCCLAY 09:42
PROVIDERS: ATTEND Family Medicine
DX: E11.9 Type 2 diabetes mellitus without complications (principal); E78.5 Hyperlipidemia, unspecified

== ENCOUNTER → 2019-12-05 | Outpatient (REF) | payer BC ==
[~2019-12-05] MED LIST changes: -ASPI81TA85 PO; +ASPI81TA86 PO; -LISI20TA19 PO; +LISI20TA35 PO
[2019-12-05 19:44] LABS: ALBUMIN 4.1 GM/DL (3.2-5.2); ALT/SGPT 28 U/L (12-78); BILIRUBIN,TOTAL 0.6 MG/DL (0.2-1.0); BLOOD UREA NITROGEN 16 MG/DL (7-18); CALCIUM LEVEL 8.8 MG/DL (8.8-10.2); CARBON DIOXIDE LEVEL 24 MEQ/L (21-32); CHLORIDE LEVEL 103 MEQ/L (98-107); CREATININE FOR GFR 0.85 MG/DL (0.70-1.30); GLOMERULAR FILTRATION RATE > 60.0 (>49); GLUCOSE, FASTING 156 MG/DL (70-100); SODIUM LEVEL 131 MEQ/L (136-145); TOTAL PROTEIN 7.6 GM/DL (6.4-8.2)
[2019-12-05 19:54] LABS: HEMOGLOBIN A1c 6.2 %
== END ==
LOC: M LABDRAWC 19:07
PROVIDERS: ATTEND Family Medicine
DX: E11.9 Type 2 diabetes mellitus without complications (principal); I10 Essential (primary) hypertension

== ENCOUNTER → 2020-03-19 | Outpatient (REF) | payer BC ==
[2020-03-19 14:20] LABS: ALBUMIN 4.4 GM/DL (3.2-5.2); ALT/SGPT 24 U/L (12-78); BILIRUBIN,TOTAL 0.6 MG/DL (0.2-1.0); BLOOD UREA NITROGEN 19 MG/DL (7-18); CALCIUM LEVEL 9.6 MG/DL (8.8-10.2); CARBON DIOXIDE LEVEL 32 MEQ/L (21-32); CHLORIDE LEVEL 98 MEQ/L (98-107); CREATININE FOR GFR 0.76 MG/DL (0.70-1.30); GLOMERULAR FILTRATION RATE > 60.0 (>49); GLUCOSE, FASTING 126 MG/DL (70-100); POTASSIUM SERUM 4.2 MEQ/L (3.5-5.1); SODIUM LEVEL 135 MEQ/L (136-145); TOTAL PROTEIN 7.4 GM/DL (6.4-8.2)
[2020-03-19 15:04] LABS: HEMOGLOBIN A1c 6.5 %
== END ==
LOC: M SFHCCLAY 07:32
PROVIDERS: ATTEND Family Medicine
DX: E11.9 Type 2 diabetes mellitus without complications (principal)

== ENCOUNTER → 2020-06-11 | Outpatient (REF) | payer BC ==
[2020-06-11 11:53] LABS: BASO # 0.1 10^3/uL (0.0-0.2); BASO % 1.8 % (0.0-1.0); EOS # 0.5 10^3/uL (0.0-0.5); EOS % 7.5 % (0.0-3.0); HEMATOCRIT 49.4 % (42.0-52.0); HEMOGLOBIN 16.3 g/dl (13.5-17.5); LYMPH # 2.1 10^3/uL (1.5-5.0); LYMPH % 30.1 % (24.0-44.0); MEAN CORPUSCULAR HEMOGLOBIN 32.1 pg (27.0-33.0); MEAN CORPUSCULAR VOLUME 97.2 fl (80.0-96.0); MONO # 0.9 10^3/uL (0.0-0.8); MONO % 12.5 % (2.0-8.0); NEUTROPHILS # 3.2 10^3/uL (1.5-8.5); NEUTROPHILS % 47.1 % (36.0-66.0); PLATELET COUNT, AUTOMATED 389 10^3/uL (150-450); RED BLOOD COUNT 5.08 10^6/uL (4.30-6.10); WHITE BLOOD COUNT 6.8 10^3/uL (4.0-10.0)
[2020-06-11 12:00] LABS: BLOOD UREA NITROGEN 19 MG/DL (7-18); CARBON DIOXIDE LEVEL 28 MEQ/L (21-32); CHLORIDE LEVEL 102 MEQ/L (98-107); CREATININE FOR GFR 0.52 MG/DL (0.70-1.30); GLOMERULAR FILTRATION RATE > 60.0 (>49); GLUCOSE, FASTING 108 MG/DL (70-100); POTASSIUM SERUM 4.7 MEQ/L (3.5-5.1); SODIUM LEVEL 135 MEQ/L (136-145)
[2020-06-11 12:01] LABS: ALBUMIN 4.5 GM/DL (3.2-5.2); ALT/SGPT 18 U/L (12-78); BILIRUBIN,TOTAL 0.2 MG/DL (0.2-1.0); CALCIUM LEVEL 9.2 MG/DL (8.8-10.2); CHOLESTEROL LEVEL 153 MG/DL (<200); HDL CHOLESTEROL 34 MG/DL (>40); LDL CHOLESTEROL 81 MG/DL (<100); NON-HDL-C 119 MG/DL; TOTAL PROTEIN 7.5 GM/DL (6.4-8.2); TRIGLYCERIDES LEVEL 190 MG/DL (<150)
[2020-06-11 13:03] LABS: HEMOGLOBIN A1c 6.7 %
== END ==
LOC: M SFHCCLAY 08:51
PROVIDERS: ATTEND Family Medicine
DX: Z01.818 Encounter for other preprocedural examination (principal); I10 Essential (primary) hypertension; E11.9 Type 2 diabetes mellitus without complications

== ENCOUNTER → 2021-04-16 | Outpatient (REF) | payer MEDICARE, BC ==
[2021-04-16 16:37] LABS: ALBUMIN 4.3 GM/DL (3.2-5.2); ALT/SGPT 20 U/L (12-78); BILIRUBIN,TOTAL 0.4 MG/DL (0.2-1.0); BLOOD UREA NITROGEN 12 MG/DL (7-18); CALCIUM LEVEL 9.6 MG/DL (8.8-10.2); CARBON DIOXIDE LEVEL 27 MEQ/L (21-32); CHLORIDE LEVEL 102 MEQ/L (98-107); CHOLESTEROL LEVEL 164 MG/DL (<200); CHOLESTEROL RISK RATIO 4.823 (<5); CREATININE FOR GFR 0.76 MG/DL (0.70-1.30); GLOMERULAR FILTRATION RATE > 60.0 (>49); GLUCOSE, FASTING 148 MG/DL (70-100); HDL CHOLESTEROL 34 MG/DL (>40); LDL CHOLESTEROL 87 MG/DL (<100); NON-HDL-C 130 MG/DL; POTASSIUM SERUM 4.6 MEQ/L (3.5-5.1); SODIUM LEVEL 136 MEQ/L (136-145); TOTAL PROTEIN 7.4 GM/DL (6.4-8.2); TRIGLYCERIDES LEVEL 216 MG/DL (<150)
[2021-04-16 17:25] LABS: HEMOGLOBIN A1c 5.9 %
== END ==
LOC: M SFHCCLAY 11:01
PROVIDERS: ATTEND Family Medicine
DX: E11.9 Type 2 diabetes mellitus without complications (principal)

== ENCOUNTER → 2021-09-06 | Outpatient (REF) | payer MEDICARE, BC ==
[2021-09-06 16:41] LABS: ALT/SGPT 18 U/L (12-78); BILIRUBIN,TOTAL 0.5 MG/DL (0.2-1.0); BLOOD UREA NITROGEN 18 MG/DL (7-18); CALCIUM LEVEL 8.4 MG/DL (8.8-10.2); CARBON DIOXIDE LEVEL 25 MEQ/L (21-32); CHLORIDE LEVEL 99 MEQ/L (98-107); CREATININE FOR GFR 0.68 MG/DL (0.70-1.30); GLOMERULAR FILTRATION RATE > 60.0 (>49); GLUCOSE, FASTING 89 MG/DL (70-100); POTASSIUM SERUM 4.1 MEQ/L (3.5-5.1); SODIUM LEVEL 131 MEQ/L (136-145); TOTAL PROTEIN 6.9 GM/DL (6.4-8.2)
[2021-09-06 17:54] LABS: HEMOGLOBIN A1c 6.3 %
== END ==
LOC: M SFHCCLAY 11:31
PROVIDERS: ATTEND Family Medicine
DX: E11.9 Type 2 diabetes mellitus without complications (principal)

== ENCOUNTER → 2022-03-07 | Outpatient (REF) | payer MEDICARE, BC ==
[2022-03-07 17:48] LABS: BASO # 0.1 10^3/uL (0.0-0.2); EOS # 0.7 10^3/uL (0.0-0.5); EOS % 7.6 % (0.0-3.0); HEMATOCRIT 48.9 % (42.0-52.0); HEMOGLOBIN 16.7 g/dl (13.5-17.5); LYMPH # 1.9 10^3/uL (1.5-5.0); MEAN CORPUSCULAR HEMOGLOBIN 32.6 pg (27.0-33.0); MEAN CORPUSCULAR HGB CONC 34.2 g/dl (32.0-36.5); MEAN CORPUSCULAR VOLUME 95.3 fl (80.0-96.0); MONO # 0.9 10^3/uL (0.0-0.8); MONO % 10.6 % (2.0-8.0); NEUTROPHILS % 58.3 % (36.0-66.0); PLATELET COUNT, AUTOMATED 351 10^3/uL (150-450); RED BLOOD COUNT 5.13 10^6/uL (4.30-6.10); WHITE BLOOD COUNT 8.6 10^3/uL (4.0-10.0)
[2022-03-07 18:09] LABS: ALBUMIN 4.1 G/DL (3.2-5.2); ALKALINE PHOSPHATASE 91 U/L (46-116); ALT/SGPT 18 U/L (7.0-40); AST/SGOT 17 U/L (<34); BILIRUBIN,TOTAL 0.7 MG/DL (0.3-1.2); BLOOD UREA NITROGEN 17 MG/DL (9-23); CALCIUM LEVEL 9.6 MG/DL (8.3-10.6); CARBON DIOXIDE LEVEL 31 MMOL/L (20-31); CHLORIDE LEVEL 101 MMOL/L (98-107); CREATININE FOR GFR 0.66 MG/DL (0.70-1.30); GLOMERULAR FILTRATION RATE > 60.0 (>49); GLUCOSE, FASTING 75 MG/DL (74-106); POTASSIUM SERUM 5.1 MMOL/L (3.5-5.1); SODIUM LEVEL 136 MMOL/L (136-145)
[2022-03-07 18:11] LABS: FREE T4 1.07 NG/DL (0.89-1.76); THYROID STIMULATING HORMONE 1.254 uIU/ML (0.55-4.78)
[2022-03-07 19:08] LABS: HEMOGLOBIN A1c 5.3 % (4.0-6.0)
== END ==
LOC: M SFHCCLAY 11:53
PROVIDERS: ATTEND Family Medicine
DX: R63.4 Abnormal weight loss (principal); E11.9 Type 2 diabetes mellitus without complications; I10 Essential (primary) hypertension

== ENCOUNTER → 2022-09-29 | Outpatient (REF) | payer MEDICARE, BC ==
[2022-09-29 18:29] LABS: HEMATOCRIT 46.7 % (42.0-52.0); HEMOGLOBIN 15.9 g/dl (13.5-17.5); MEAN CORPUSCULAR HEMOGLOBIN 32.1 pg (27.0-33.0); MEAN CORPUSCULAR VOLUME 94.2 fl (80.0-96.0); PLATELET COUNT, AUTOMATED 376 10^3/uL (150-450); RED BLOOD COUNT 4.96 10^6/uL (4.30-6.10); WHITE BLOOD COUNT 7.4 10^3/uL (4.0-10.0)
[2022-09-29 18:30] LABS: HEMOGLOBIN A1c 5.4 % (4.0-6.0)
[2022-09-29 18:45] LABS: ALBUMIN 4.3 G/DL (3.2-5.2); ALKALINE PHOSPHATASE 71 U/L (46-116); ALT/SGPT 13 U/L (7.0-40); AST/SGOT < 8 U/L (<34); BLOOD UREA NITROGEN 20 MG/DL (9-23); CALCIUM LEVEL 10.6 MG/DL (8.3-10.6); CARBON DIOXIDE LEVEL 29 MMOL/L (20-31); CHLORIDE LEVEL 96 MMOL/L (98-107); CREATININE FOR GFR 0.68 MG/DL (0.70-1.30); GLOMERULAR FILTRATION RATE > 60.0 (>49); GLUCOSE, FASTING 91 MG/DL (74-106); POTASSIUM SERUM 4.3 MMOL/L (3.5-5.1); SODIUM LEVEL 132 MMOL/L (136-145); TOTAL PROTEIN 6.9 G/DL (5.7-8.2)
== END ==
LOC: M SFHCCLAY 11:37
PROVIDERS: ATTEND Family Medicine
DX: I10 Essential (primary) hypertension (principal); E11.9 Type 2 diabetes mellitus without complications

== ENCOUNTER → 2023-04-03 | Outpatient (REF) | payer MEDICARE, BC ==
[2023-04-03 18:32] LABS: ALBUMIN 4.2 G/DL (3.2-5.2); ALKALINE PHOSPHATASE 83 U/L (46-116); ALT/SGPT 9 U/L (7.0-40); AST/SGOT 10 U/L (<34); BILIRUBIN,TOTAL 0.4 MG/DL (0.3-1.2); BLOOD UREA NITROGEN 15 MG/DL (9-23); CARBON DIOXIDE LEVEL 28 MMOL/L (20-31); CHLORIDE LEVEL 104 MMOL/L (98-107); CHOLESTEROL LEVEL 118 MG/DL (<200); CREATININE FOR GFR 0.53 MG/DL (0.70-1.30); GLOMERULAR FILTRATION RATE > 60.0 (>49); GLUCOSE, FASTING 92 MG/DL (74-106); LDL CHOLESTEROL 62.4 MG/DL (<100); POTASSIUM SERUM 4.2 MMOL/L (3.5-5.1); SODIUM LEVEL 138 MMOL/L (136-145); TOTAL PROTEIN 6.9 G/DL (5.7-8.2); TRIGLYCERIDES LEVEL 123 MG/DL (<150)
[2023-04-03 18:52] LABS: HEMOGLOBIN A1c 5.8 % (4.0-6.0)
== END ==
LOC: M SFHCCLAY 09:55
PROVIDERS: ATTEND Family Medicine
DX: E11.9 Type 2 diabetes mellitus without complications (principal)

== ENCOUNTER → 2023-07-07 | Outpatient (REF) | payer MEDICARE, BC ==
[~2023-07-07] MED LIST changes: +ASPI81TA26 PO; +HYDR-4514 PO; +LISI20TA37 PO; +LOPI600T PO; +MAGN200T PO
[2023-07-07 12:33] LABS: BASO # 0.1 10^3/uL (0.0-0.2); BASO % 1.5 % (0.0-1.0); EOS # 0.6 10^3/uL (0.0-0.5); EOS % 7.8 % (0.0-3.0); HEMATOCRIT 45.5 % (42.0-52.0); HEMOGLOBIN 15.7 g/dl (13.5-17.5); LYMPH # 1.9 10^3/uL (1.5-5.0); LYMPH % 25.9 % (24.0-44.0); MEAN CORPUSCULAR HEMOGLOBIN 31.8 pg (27.0-33.0); MEAN CORPUSCULAR HGB CONC 34.5 g/dl (32.0-36.5); MEAN CORPUSCULAR VOLUME 92.1 fl (80.0-96.0); MONO # 0.7 10^3/uL (0.0-0.8); MONO % 9.8 % (2.0-8.0); NEUTROPHILS % 54.6 % (36.0-66.0); PLATELET COUNT, AUTOMATED 389 10^3/uL (150-450); RED BLOOD COUNT 4.94 10^6/uL (4.30-6.10); WHITE BLOOD COUNT 7.3 10^3/uL (4.0-10.0)
[2023-07-07 12:35] LABS: HEMOGLOBIN A1c 5.4 % (4.0-6.0)
[2023-07-07 12:53] LABS: ALBUMIN 4.1 G/DL (3.2-5.2); ALKALINE PHOSPHATASE 79 U/L (46-116); ALT/SGPT < 9 U/L (7.0-40); AST/SGOT < 8 U/L (<34); BILIRUBIN,TOTAL 0.3 MG/DL (0.3-1.2); BLOOD UREA NITROGEN 17 MG/DL (9-23); CALCIUM LEVEL 9.5 MG/DL (8.3-10.6); CARBON DIOXIDE LEVEL 29 MMOL/L (20-31); CHLORIDE LEVEL 104 MMOL/L (98-107); CREATININE FOR GFR 0.68 MG/DL (0.70-1.30); GLOMERULAR FILTRATION RATE > 60.0 (>49); GLUCOSE, FASTING 83 MG/DL (74-106); POTASSIUM SERUM 4.8 MMOL/L (3.5-5.1); SODIUM LEVEL 136 MMOL/L (136-145); TOTAL PROTEIN 6.9 G/DL (5.7-8.2)
== END ==
LOC: M SFHCCLAY 09:06
PROVIDERS: ATTEND Family Medicine
DX: I10 Essential (primary) hypertension (principal); E11.9 Type 2 diabetes mellitus without complications

== ENCOUNTER 2023-07-13 06:01 | Day surgery (SDC) | payer MEDICARE, BC ==
[~2023-07-13] VITALS: Ht 167.6 cm; Wt 66.2 kg
[2023-07-13] MEDS ORDERED: LR 1,000 ML IV SCH ×2 (06:25→09:15)
[2023-07-13] MEDS: ceFAZolin SOD 2 GM in IV 1 EA IV ONE (07:42)
[2023-07-13] MEDS ORDERED: ACETAMINOPHEN 1000MG 100ML IV BAG As Ordered ONE (08:02)
[2023-07-13] MEDS ORDERED: ONDANSETRON 4MG 2ML VIAL As Ordered ONE (08:02)
[2023-07-13] MEDS ORDERED: fentaNYL 100 MCG/2 ML INJECTION As Ordered ONE (08:02)
[2023-07-13] MEDS ORDERED: SUGAMMADEX SODIUM 500 MG/5 ML VIAL (BRIDION) As Ordered ONE (08:02)
[2023-07-13] MEDS ORDERED: LIDOCAINE 2% 100MG/5ML SDV (FOR ANES.) As Ordered ONE (08:02)
[2023-07-13] MEDS ORDERED: MIDAZOLAM INJ 2MG/2ML VIAL As Ordered ONE (08:02)
[2023-07-13] MEDS ORDERED: propofoL 200 MG/20 ML VIAL As Ordered ONE (08:02)
[2023-07-13] MEDS ORDERED: ROCURONIUM BROMIDE 50MG/5ML VIAL As Ordered ONE (08:02)
[2023-07-13] MEDS: HEPARIN SOD (PORCINE) 5000UNITS/ML 1ML VIAL/SYRINGE SQ ONE (08:03)
[2023-07-13] MEDS ORDERED: HYDROMORPHONE HCL 0.5 MG/ 0.5 ML SYRINGE IV PRN (09:15)
[2023-07-13] MEDS ORDERED: ONDANSETRON 4MG 2ML VIAL IV PRN (09:15)
[2023-07-13] MEDS ORDERED: fentaNYL 100 MCG/2 ML INJECTION IV PRN (09:15)
[2023-07-13] MEDS: oxyCODONE 5MG TAB PO PRN (09:32)
[2023-07-13 10:09] VITALS: BP 104/61; TEMP 97.7; O2SAT 94
== END 2023-07-13 11:27 | disposition home or self-care (01) ==
LOC: M SDC 06:01
PROVIDERS: ATTEND Surgery
DX: K42.0 Umbilical hernia with obstruction, without gangrene (principal); I10 Essential (primary) hypertension; E78.00 Pure hypercholesterolemia, unspecified; M54.9 Dorsalgia, unspecified; J44.9 Chronic obstructive pulmonary disease, unspecified; R91.1 Solitary pulmonary nodule; Z88.8 Allergy status to other drugs, medicaments and biological substances; Z79.899 Other long term (current) drug therapy; Z79.82 Long term (current) use of aspirin; Z79.891 Long term (current) use of opiate analgesic; F17.210 Nicotine dependence, cigarettes, uncomplicated
CPT/HCPCS: 49614; C1781; J0131; J0665; J0690; J1100; J2250; J2405; J3010

== ENCOUNTER → 2024-03-01 | Outpatient (CLI) | payer MEDICARE, BC | LOC: M PLARAD 10:26 | PROVIDERS: ATTEND Nurse Practitioner | DX: Z98.1 Arthrodesis status (principal); S32.010A Wedge compression fracture of first lumbar vertebra, initial encounter for closed fracture; M54.50 Low back pain, unspecified; W18.30XA Fall on same level, unspecified, initial encounter; Y92.009 Unspecified place in unspecified non-institutional (private) residence as the place of occurrence of the external cause ==

== ENCOUNTER → 2024-04-04 | Outpatient (CLI) | payer MEDICARE, BC | LOC: M PLARAD 09:32 | PROVIDERS: ATTEND Nurse Practitioner | DX: M48.04 Spinal stenosis, thoracic region (principal); Z98.1 Arthrodesis status; G89.29 Other chronic pain; M47.894 Other spondylosis, thoracic region; M51.24 Other intervertebral disc displacement, thoracic region ==

== ENCOUNTER → 2024-10-18 | Outpatient (REF) | payer MEDICARE, BC | LOC: M SFHCCLAY 10:17 | PROVIDERS: ATTEND Family Medicine | DX: Z53.9 Procedure and treatment not carried out, unspecified reason (principal) ==

== ENCOUNTER → 2024-12-12 | Outpatient (CLI) | payer MEDICARE, BC | LOC: M CLY 11:56 | PROVIDERS: ATTEND Family Medicine | DX: M25.511 Pain in right shoulder (principal) ==